=== PATIENT | female | born 1945 | race Caucasian/White ===

== ENCOUNTER → 2017-06-14 | Outpatient (CLI) | payer BC ==
[~2017-06-14] MED LIST: CEFTIN500 MG PO; DUO-KAPS1 CAP; LEVOXYL0.025 MG PO; TUMS500 MG; VITAMIN D1000 IU PO; ZANAFLEX CAPSULE2 MG PO
== END ==
LOC: MC.RAD 11:40
DX: Z12.31 Encounter for screening mammogram for malignant neoplasm of breast (principal); Z80.3 Family history of malignant neoplasm of breast

== ENCOUNTER → 2018-10-05 | Outpatient (CLI) | payer BC, MEDICARE | LOC: MC.RAD 09-11 14:00 | DX: Z12.31 Encounter for screening mammogram for malignant neoplasm of breast (principal) ==

== ENCOUNTER 2023-08-31 14:06 | Outpatient (CLI) | payer MEDICARE, BC ==
[~2023-08-31] VITALS: Ht 162.6 cm; Wt 62.2 kg
[2023-08-31 14:01] VITALS: BP 131/63; PULSE 72; TEMP 98.4
[~2023-08-31 14:06] MED LIST changes: +ASPI325T6 PO; +EUTHYROX75 MCG PO; +MULTI VITAMINS1 TAB PO; +NORCO 325 MG-51 TAB PO; +PAXIL 20MG20 MG PO; +PRAVACHOL 40MG40 MG PO; +SYNTHROID0.075 MG/T PO; -VITAMIN D1000 IU PO; +VITAMIN D31000 IU PO; +ZANAFLEX 4MG TAB4 MG PO
--- NOTE | 2023-08-31 14:18 | NUR ---
PT TOLERATED INJECTIONS WELL AND WAS FREE FROM ACUTE CONCERNS AND COMPLAINTS AT TIME OF DISCHARGE. PT WAS ASSISTED TO MAIN LOBBY VIA WHEELCHAIR AND WAS ACCOMPANIED BY .
[2023-08-31] MEDS ORDERED: Romosozumab-aqqg 210 MG/2.34 ML 2-Syringe KIT SQ ONE (14:30)
== END 2023-08-31 14:19 | disposition home or self-care (01) ==
LOC: EUO 14:06
DX: M81.0 Age-related osteoporosis without current pathological fracture (principal)
CPT/HCPCS: J3111

== ENCOUNTER 2023-09-28 14:06 | Outpatient (RCR) | payer MEDICARE, BC ==
[~2023-09-28] VITALS: Ht 162.6 cm; Wt 63.3 kg
[2023-09-28 14:26] VITALS: BP 131/63; PULSE 68; TEMP 97.2
[2023-09-28] MEDS ORDERED: Romosozumab-aqqg 210 MG/2.34 ML 2-Syringe KIT SQ ONE (14:30)
== END 2023-09-29 | disposition home or self-care (01) ==
LOC: EUO
DX: M81.0 Age-related osteoporosis without current pathological fracture (principal)
CPT/HCPCS: J3111

== ENCOUNTER 2023-10-26 14:10 | Outpatient (CLI) | payer MEDICARE, BC ==
[~2023-10-26] VITALS: Ht 162.6 cm; Wt 63.0 kg
[2023-10-26 14:19] VITALS: BP 139/85; PULSE 70; TEMP 97.5
[2023-10-26] MEDS ORDERED: Romosozumab-aqqg 210 MG/2.34 ML 2-Syringe KIT SQ ONE (14:30)
--- NOTE | 2023-10-26 14:38 | NUR ---
PT TOLERATED INJECTIONS WELL AND VS REMAINED WITHIN NORMAL LIMITS. PT FREE FROM ACUTE CONCERNS AND COMPLAINTS UPON DISCHARGE. PT ASSISTED TO MAIN LOBBY VIA WHEELCHAIR AND WAS ACCOMPANIED BY .
== END 2023-10-26 14:39 | disposition home or self-care (01) ==
LOC: EUO 14:10
DX: M81.0 Age-related osteoporosis without current pathological fracture (principal)
CPT/HCPCS: J3111

== ENCOUNTER 2023-11-23 14:07 | Outpatient (RCR) | payer MEDICARE, BC ==
[~2023-11-23] VITALS: Ht 165.1 cm; Wt 51.0 kg
[2023-11-23] MEDS ORDERED: Romosozumab-aqqg 210 MG/2.34 ML 2-Syringe KIT SQ ONE (14:30)
[2023-11-23 14:47] VITALS: BP 125/70; PULSE 83; TEMP 98
== END 2023-11-23 14:30 ==
LOC: EUO 14:07
DX: M81.0 Age-related osteoporosis without current pathological fracture (principal)
CPT/HCPCS: J3111

== ENCOUNTER 2023-11-29 22:08 | Inpatient (IN) | payer MEDICARE, BC ==
[~2023-11-29] VITALS: Ht 165.1 cm; Wt 59.1 kg
[2023-11-29] MEDS ORDERED: NS 1,000 ML IV ONE (22:30)
[2023-11-29 23:01] LABS: ALBUMIN 2.5 g/dL (3.4-4.8); BILIRUBIN,TOTAL 0.1 mg/dL (0.2-1.2); C-REACTIVE PROTEIN 0.05 mg/dL (0.00-0.50); CALCIUM 8.3 mg/dL (8.4-10.2); CREATININE, serum 0.68 mg/dL (0.57-1.11); MAGNESIUM 1.9 mg/dL (1.6-2.6); TOTAL PROTEIN 4.7 g/dl (6.2-8.1)
[2023-11-29 23:37] LABS: BASO % 0.1 % (0.0-2.0); EOS # 0.1 K/mm3 (0.0-0.7); EOS % 0.6 % (0.0-4.0); GRAN # 11.5 K/mm3 (1.4-6.5); LYMPH # 1.2 K/mm3 (1.2-3.4); LYMPH % 8.8 % (20.0-51.0); MEAN CELL VOLUME 101 fl (80.0-100.0); MEAN CORPUSCULAR HGB CONC 32 g/dl (33.0-37.0); MEAN PLATELET VOLUME 10.8 fl (7.4-10.4); MONO # 1.1 K/mm3 (0.1-0.6); MONO % 7.5 % (1.7-9.3); PLATELET COUNT 221 K/mm3 (130-400); RED BLOOD COUNT 1.44 M/mm3 (4.10-5.30); REDCELL DISTRIBUTION WIDTH-CV 16.1 % (11.5-14.5)
[2023-11-29 23:42] LABS: HEMOGLOBIN 4.7 g/dl (12.5-16.0); MEAN CORPUSCULAR HEMOGLOBIN 33 pg (27-31)
[2023-11-29 23:43] LABS: HEMATOCRIT 14.6 % (37.0-47.0)
[2023-11-30] VITALS (798 sets, daily range): BP systolic 64–121; BP diastolic 33–82; PULSE 88–109; TEMP 98.1–99.6; O2SAT 88–100
[2023-11-30 00:56] LABS: INR 1.3 (0.8-3.0)
[2023-11-30 00:58] LABS: PARTIAL THROMBOPLASTIN TIME 24.9 SECONDS (26.0-37.0)
[2023-11-30 01:29] LABS: RETIC # 0.1 M/mm3 (0.02-0.16); RETIC % 7.2 % (0.5-3.52)
[2023-11-30] MEDS ORDERED: FLOMAX 0.40.4 MG/CAP PO (01:47)
--- NOTE | 2023-11-30 02:32 | NUR ---
RECEIVED REPORT FROM Nayana SPIVEY, ARTURO. WAITING FOR PATIENT TO ARRIVE TO FLOOR FOR ADMIT TO ROOM 327.
--- NOTE | 2023-11-30 03:06 | NUR ---
PATIENT ARRIVED TO ROOM PER E.Natalia CART/TRANSPORTED BY NayanaRNARTURO. PATIENT'S SPOUSE PRESENT, 1ST UNIT PC INFUSING WITH NO PROBLEMS.
--- NOTE | 2023-11-30 03:19 | NUR ---
DR JAIME NOTIFIED OF PATIENT'S ARRIVAL TO ROOM 327, NO NEW ORDERS GIVEN AT THIS TIME. PLAN TO RECHECK CBC 2 HOURS POST 2ND UNIT PACK CELLS PER HOSP. P/P. PATIENT DENIES CHEST PAIN/SOA/CHILLS AT THIS TIME. DENIES ANY RECENT COMPLAINTS OF SKIN PROBLEMS OR URINARY/BOWEL PROBLEMS. PATIENT IS ON ROOM AIR.
[2023-11-30] MEDS ORDERED: Ondansetron 4 MG/2 ML VIAL IV PRN (03:30)
[2023-11-30] MEDS ORDERED: Acetaminophen 500 MG TAB PO PRN (03:30)
[2023-11-30] MEDS ORDERED: tiZANidine 4 MG TAB PO SCH (03:55)
--- NOTE | 2023-11-30 04:47 | NUR ---
2ND UNIT PRBC HUNG PER D.O. SEE VS PER MEDITECH. PATIENT DENIES CHEST PAIN/SOA/CHILLS AT THIS TIME. BLOOD TRANSFUSING AT START OF TRANSFUSION WITH NO OBSERVED PROBLEMS CURRENTLY. PATIENT ATTEMPTING TO VOID PER DANIELA BOLES. AT BEDSIDE.
--- NOTE | 2023-11-30 04:57 | NUR ---
BLOOD TRANSFUSING WITH NO REPORTED C/O OF CHEST PAIN/SOA/CHILLS. INCREASED BLOOD RATE TO 100 PER HOSP P/P. PATIENT DENIES ANY NEEDS OR CONCERNS AT THIS TIME.
--- NOTE | 2023-11-30 05:22 | NUR ---
PATIENT DENIES CHILLS/CHEST PAIN/SOA AT THIS TIME. BLOOD TRANSFUSING WITH NO PROBLEMS, INCREASED RATE TO 110 ML/HR.
--- NOTE | 2023-11-30 06:01 | NUR ---
INFORMED DR JAMIE OF LOW BP, PATIENT HAD TIZANIDINE, PATIENT AWAKES WITH NAME CALLED, THAT PATIENT DENIES CHILLS/CHEST PAIN/SOA WITH BLOOD TRANSFUSING. D.O. GIVEN TO CONTINUE WITH BLOOD, MONITOR PATIENT, CALL IF PATIENT BECOMES CONFUSED/AGITATED TO PROVIDER.
--- NOTE | 2023-11-30 06:04 | NUR ---
TYLENOL GIVEN FOR LOW GRADE TEMP. PATIENT DENIES CHILLS/CHEST PAIN/SOA/BACK PAIN WITH BLOOD TRANSFUSING. BLOOD TRANSFUSING WITH NO PROBLEMS. OBSERVED URINE IN CANISTER OF YELLOW COLOR AND CLEAR IN APPEARANCE. PATIENT STATES THAT SHE NORMALLY TAKES HER THYROID MEDICINE AT AROUND 0800 AT TIME.
[2023-11-30] MEDS ORDERED: NS 1,000 ML IV SCH ×2 (07:15→09:00)
--- NOTE | 2023-11-30 07:26 | NUR ---
SPOKE WITH LEAD PHP DEVELOPER REGARDING RECENT VS, CALL TO ONCALL PROVIDER REGARDING LOW BP, WITH RECOMMENDATIONS TO HAVE REST OF BLOOD UNIT BE GIVEN AT INFUSION RATE OF 200 ML/HR. LEAD PHP DEVELOPER CALLED BACK, INFORMING OF PATIENT TO BE TRANSFERED TO ICU AFTER DAY SHIFT PROVIDER INFORMED OF CHANGE OF VITAL SIGNS. REPORT CALLED TO DONNA SPIVEY, ICU CHARGE WITH BED ASSIGNMENT ICU BED #3 RELAYED TO THIS NURSE. PATIENT TRANSPORT VIA HOSP BED DOWN TO ICU, BED #3 WITH NO FURTHER QUESTIONS FROM RECEIVING ICU NURSES UPON PATIENT ARRIVAL TO UNIT. BLOOD TRANSFUSION ALSO COMPLETED WHEN PATIENT PHYSICALLY BROUGHT TO ICU.
[2023-11-30] MEDS ORDERED: NS 1,000 ML IV ONE (07:45)
[2023-11-30 07:47] LABS: MEAN CORPUSCULAR HGB CONC 33 g/dl (33.0-37.0); MEAN PLATELET VOLUME 10.6 fl (7.4-10.4); PLATELET COUNT 176 K/mm3 (130-400); REDCELL DISTRIBUTION WIDTH-CV 18.2 % (11.5-14.5)
[2023-11-30 07:51] LABS: HEMATOCRIT 21.4 % (37.0-47.0); HEMOGLOBIN 7.1 g/dl (12.5-16.0); MEAN CORPUSCULAR HEMOGLOBIN 31 pg (27-31)
[2023-11-30 07:53] LABS: MEAN CELL VOLUME 93 fl (80.0-100.0)
[2023-11-30 07:54] LABS: CALCIUM 7.6 mg/dL (8.4-10.2); CREATININE, serum 0.63 mg/dL (0.57-1.11)
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
[2023-11-30] MEDS ORDERED: Cyanocobalamin (Vit B-12) 1,000 MCG TAB PO SCH (09:00)
[2023-11-30] MEDS ORDERED: Cholecalciferol (Vit D3) 1000 Units TAB PO SCH (09:00)
[2023-11-30] MEDS ORDERED: PARoxetine HCL 10 MG TABLET PO SCH (09:00)
--- NOTE | 2023-11-30 10:11 | NUR ---
tin worker met with patient and , Francisco J [phone] to discuss discharge planning. Pt lives with her in [place]. She sees Dr. Colon for PCP needs and [facility]. She reports to be independent with ADLs and has a FWW, cane, power chair, and grab bars for DME. reports the home as very accessible as she has MS. informs she attends ST/OT at [facility] and OP PT with [facility]. They would like to continue these services and return home at discharge. Francisco J reports he and their daughter, Melani are DPOA-HC. He thought the hospital had a copy uploaded from their last stay. SW encouraged him to bring another from home, if able. Discharge Plan: home with OP services
[2023-11-30 14:49] LABS: HEMOGLOBIN 6.1 g/dl (12.5-16.0)
[2023-11-30 14:50] LABS: HEMATOCRIT 19.3 % (37.0-47.0)
--- NOTE | 2023-11-30 16:16 | NUR ---
Reached out to Dr. Nicky Colon's office for lab records for baseline of Hemaglobin for Ms. Barron. Baseline is 13.3 Hgh. Redraw of Hgh at 1400, was 6.1, a drop from 7.1, likely from dilution from fluids, however, 1 unit of PRBC was ordered as well as a Q6hr HGH/HCT for the next 24 hours to closely monitor for a drop.
--- NOTE | 2023-11-30 18:27 | NUR ---
Second unit of blood was transfused during shift lab technician on the proof technician helper of November 30, 2023. The second unit was not completed or "ended" in [facility], therefore, I put an approximate time to end second unit so that I was able to start a third unit needed for a 6.1 Hemaglobin. Q6hr blood H and H is ordered for 24 hours.
--- NOTE | 2023-11-30 19:00 | NUR ---
PER REPORT HG DROPPED TODAY. 3RD UNIT OF RBC'S GIVEN. NEED STOOL FOR OCCULT IF SAMPLE CAN BE COLLECTED.
[2023-11-30 19:48] LABS: HEMATOCRIT 22.7 % (37.0-47.0); HEMOGLOBIN 7.6 g/dl (12.5-16.0)
[2023-11-30] MEDS ORDERED: Pravastatin 20 MG TAB PO SCH (21:00)
--- NOTE | 2023-11-30 22:45 | NUR ---
WHILE UP TO BATHROOM PT BECAME WEAK AND UNABLE TO AMBULATE BACK TO THE BATHROOM. PT TRANSFERED TO WHEELCHAIR WITH ASSIST OF 2. PT TRANSFERED FROM WHEELCHAIR TO BED. PT BECAME NAUSEATED. 100 ML REDDISH BROWN EMESIS. SAMPLE SENT TO LAB.
[2023-11-30 23:38] LABS: GASTROCCULT POSITIVE; pH GASTRIC CONTENTS 4
[2023-12-01] VITALS (821 sets, daily range): BP systolic 92–142; BP diastolic 52–92; PULSE 75–126; TEMP 98.1–98.9; O2SAT 85–100
--- NOTE | 2023-12-01 | NUR ---
PROVIDER NOTIFIED EMESIS SENT TO LAB WAS POSITIVE FOR BLOOD. ORDER RECEIVED AND EXECUTED. CONTINUE WITH PLAN OF CARE.
[2023-12-01] MEDS ORDERED: PANTOPRAZOLE IV ONE (00:15)
[2023-12-01] MEDS ORDERED: [UNRECOGNIZED DRUG - OTHER] IV ONE (00:15)
[2023-12-01] MEDS ORDERED: NS IV ONE (00:15)
--- NOTE | 2023-12-01 01:19 | NUR ---
PT LEFT PRICING MANAGER WEAKER THAT RIGHT. THIS IS HER BASELINE. HISTORY OF MS. LLE EDEMA. STABLE ON ROUNDS. NO SIGN OF DISTRESS AT THIS TIME. CONTINUE PLAN OF CARE.
--- NOTE | 2023-12-01 02:17 | NUR ---
PT TACHYCARDIC. CBC AND BMP ORDER.
[2023-12-01 02:50] LABS: BASO % 0.2 % (0.0-2.0); EOS # 0.3 K/mm3 (0.0-0.7); GRAN # 10.6 K/mm3 (1.4-6.5); GRAN % 69.5 % (42.2-75.2); LYMPH # 2.5 K/mm3 (1.2-3.4); LYMPH % 16.5 % (20.0-51.0); MEAN CELL VOLUME 95 fl (80.0-100.0); MEAN CORPUSCULAR HGB CONC 33 g/dl (33.0-37.0); MEAN PLATELET VOLUME 10.6 fl (7.4-10.4); MONO # 1.5 K/mm3 (0.1-0.6); MONO % 9.5 % (1.7-9.3); PLATELET COUNT 142 K/mm3 (130-400); RED BLOOD COUNT 1.91 M/mm3 (4.10-5.30); REDCELL DISTRIBUTION WIDTH-CV 18.3 % (11.5-14.5)
[2023-12-01 02:54] LABS: HEMATOCRIT 18.2 % (37.0-47.0); MEAN CORPUSCULAR HEMOGLOBIN 31 pg (27-31)
[2023-12-01 03:07] LABS: CALCIUM 7.6 mg/dL (8.4-10.2); CREATININE, serum 0.56 mg/dL (0.57-1.11); POTASSIUM 3.6 mEq/L (3.5-4.5)
[2023-12-01 03:27] LABS: ANISOCYTOSIS 2+; BAND 4 % (0-10); LYMPHOCYTE 12 % (20.0-51.0); NEUTROPHILS 83 % (42.0-75.2); PLATELET ESTIMATE NORMAL (NORMAL)
[2023-12-01] MEDS ORDERED: Potassium Chloride 100 ML IV SCH (04:00)
[2023-12-01] MEDS ORDERED: *Potassium Replacement Protocol MC SCH (04:00)
--- NOTE | 2023-12-01 06:21 | NUR ---
PT IS CURRENTLY RECEIVING 4TH UNIT OF PRBC'S SINCE ADMISSION. DISCUSSED WITH PROVIDER AND SERIAL H&H ORDERED, POTASSIUM REPLACEMENT ORDERED. GI CONSULT FOR THIS MORNING. POTASSIUM RATE SLOWED TO 75 ML/HR, PT IS NOT TOLERATING WELL. WARM PACK APPLIED TO AREA. PT IS STABLE. THIS NURSE MADE PT NPO AFTER 0200. STABLE ON ROUNDS. CONTINUE WITH PLAN OF CARE.
--- NOTE | 2023-12-01 07:00 | NUR ---
Report received from PATRIC Hale. Reveiwed overnight events and labs. Hgb is 6.0. Blood currently transfusing. Pt resting in bed with cervical collar in place. Purwick in place. Call light wihtin reach. Will continue with POC.
--- NOTE | 2023-12-01 08:00 | NUR ---
Blood transfuion completed. Pt tolerated well with no reaction. Vital signs re stable. Will continue with POC.
[2023-12-01] MEDS ORDERED: Pantoprazole 40 MG in NS 10 ML IV SCH (09:00)
[2023-12-01 10:08] LABS: HEMATOCRIT 21.8 % (37.0-47.0); HEMOGLOBIN 7.3 g/dl (12.5-16.0)
--- NOTE | 2023-12-01 11:33 | NUR ---
Data: Electric Razor Assembler visit attempted during Electric Razor Assembler rounds. Patient had visitors. Assessment: None. Plan of Care: Chaplains will remain available as needed/requested while Patient is admitted to this hospital.
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
[2023-12-01] MEDS ORDERED: Ondansetron 4 MG/2 ML VIAL IV PRN (13:00)
[2023-12-01] MEDS ORDERED: Lidocaine PF 2% (20 MG/ML) 5 ML VIAL ONE (14:04)
[2023-12-01 16:21] LABS: HEMATOCRIT 20.8 % (37.0-47.0); HEMOGLOBIN 6.9 g/dl (12.5-16.0)
[2023-12-01] MEDS ORDERED: Furosemide 40 MG/4 ML VIAL IV ONE (20:00)
--- NOTE | 2023-12-01 20:35 | NUR ---
PT IS SITTING UP IN BED WATCHING TV WITH HER . SHE IS ORIENTED TO NAME AND LOCATION. SHE HAS BLOOD TRANSFUSING IN A RIGHT UPPER ARM MIDLINE. SHE HAS A PUREWICK WITH ADEQUATE URINE OUTPUT. NO PAIN COMPLAINTS AT THIS TIME. BED ALARM IS ACTIVATED AND CALL LIGHT IN HER LAP.
--- NOTE | 2023-12-01 22:45 | NUR ---
REPORT CALLED TO ANDREA. PT REMAINS ALERT TO SELF AND LOCATION. SHE IS IN NO DISTRESS. PT IS TRANSPORTED WILL ALL OF HER BELONGINGS IN THE BED BY TARYN.
[2023-12-01 23:07] LABS: HEMATOCRIT 25.6 % (37.0-47.0); HEMOGLOBIN 8.6 g/dl (12.5-16.0)
--- NOTE | 2023-12-01 23:16 | NUR ---
PATIENT ARRIVED TO MEDICAL FLOOR AT APPROX 2255. PATIENT IS ALERT, AND ORIENTED TO SELF AND PLACE. ASSESSMENT COMPLETE. DOUBLE LUMEN TO RIGHT UPPER ARM COVERED WITH WOLFGANG BANDAGE. INT TO LEFT HAND AND WRIST. GENERALIZED ECCHYMOSIS TO ABD. LLE IS MORE EDEMATOUS COMPARED TO RLE. PITTING +1 EDEMA NOTED TO LLE. SCDS ON. PATIENT MOVES EXTREMITIES, BUT IS VERY WEAK. PATIENT SAYS SHE WALKS WITH A CANE AT HOME, BUT HAS NOT WALKED THIS HOSPITAL STAY. C COLLAR TO STAY ON CONTINUOUSLY. PERIWIK IN PLACE. FALL PRECAUTIONS IN PLACE. CALL LIGHT WITHIN REACH. PATIENT DENIES NEEDS OR CONCERNS AT THIS TIME.
[2023-12-02] VITALS: BP 132/90; PULSE 101; TEMP 98.1
[2023-12-02 04:00] VITALS: BP 148/71; PULSE 82; TEMP 98.4
--- NOTE | 2023-12-02 07:00 | NUR ---
PATIENT AWAKE AND ALERT, SITTING UP IN BED. PATIENT DENIES ANY NEEDS OR COMPLAINTS AT THIS TIME, FALL PRECAUTINS IN PLACE, C COLLAR IN PLACE.
[2023-12-02 07:39] VITALS: BP 154/79; PULSE 87; TEMP 97.6
[2023-12-02 08:01] LABS: MEAN CELL VOLUME 93 fl (80.0-100.0); MEAN CORPUSCULAR HGB CONC 32 g/dl (33.0-37.0); MEAN PLATELET VOLUME 10.8 fl (7.4-10.4); PLATELET COUNT 143 K/mm3 (130-400); RED BLOOD COUNT 2.81 M/mm3 (4.10-5.30); REDCELL DISTRIBUTION WIDTH-CV 18.6 % (11.5-14.5)
[2023-12-02 08:04] LABS: HEMATOCRIT 26.2 % (37.0-47.0); HEMOGLOBIN 8.5 g/dl (12.5-16.0); MEAN CORPUSCULAR HEMOGLOBIN 30 pg (27-31)
[2023-12-02 08:17] LABS: CREATININE, serum 0.54 mg/dL (0.57-1.11); POTASSIUM 3.4 mEq/L (3.5-4.5)
[2023-12-02 09:29] LABS: ANISOCYTOSIS 2+; BAND 2 % (0-10); EOSINOPHIL 6 % (0-4); LYMPHOCYTE 28 % (20.0-51.0); NEUTROPHILS 62 % (42.0-75.2); PLATELET ESTIMATE NORMAL (NORMAL)
[2023-12-02] MEDS ORDERED: Potassium Bicarbonate/Citrate 20 MEQ Effervescent TAB PO SCH (10:00)
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
--- NOTE | 2023-12-02 12:00 | NUR ---
PATIENT UPDATED THAT PER MD IF SHE IS ABLE TO TOELRATE A NORMAL DIET SHE CAN DISCHARGE HOME TODAY. PATIENT IN AGREEMENT WITH PLAN AND DENEIS ANY CONCERNS AT THIS TIME.
--- NOTE | 2023-12-02 13:33 | NUR ---
MD INFORMED PATIENT TOLERATTED 50% OF LUNCH WITH NO N,V OR PAIN. PER MD PATIENT CAN DISCHARGE HOME
[2023-12-02] MEDS ORDERED: PROTONIX 40MG T40 MG PO (14:16)
[2023-12-02] MEDS ORDERED: CARAFATE 1GM1 G PO (14:17)
--- NOTE | 2023-12-02 14:29 | NUR ---
dr torres updated on patient status. per physician patient needs no follow up at this time.
--- NOTE | 2023-12-02 15:00 | NUR ---
PATIENT GIVEN DISCHARGE INSTRUCITONS AND EDUCATION. PATIENTS IV DISCONTONIED. PATIENTS MIDLINE REMOVED, USING CENTRAL LINE REMOVAL PROTOCOL. GAUZE AND TEGADERM TO MIDLINE REMOVAL SITE. PATIENT LYING FLAT IN BED. PATIENT AWARE FLAT TIME IS DONE AT 1530.
--- NOTE | 2023-12-02 15:38 | NUR ---
PATIENT MIDLINE REMOVAL SITE CDI. PATIENT TAKEN VIA WHEELCHAIR TO PATIENT ENTRANCE WHERE HE PICKED HER UP. BERTIN LEFT IN STABLE CONDITION.
[2023-12-05] VITALS (59 sets, daily range): O2SAT 95–100
== END 2023-12-02 15:37 | disposition home or self-care (01) | DRG 378 ==
LOC: COL.ER 22:08 → SURG 11-30 02:35 → MEDICAL 11-30 02:35 → ICU 11-30 02:35 → MEDICAL 12-01 22:55
PROVIDERS: Emergency Medicine; Hospitalist; Internal Medicine; Internal Medicine Gastroenterology; Internal Medicine Sleep Medicine; Nurse Practitioner Family; ADMIT Internal Medicine
PROC: 30233N1 Transfusion of Nonautologous Red Blood Cells into Peripheral Vein, Percutaneous Approach (ICD-10-PCS; 2023-11-30)
PROC: 0W3P8ZZ Control Bleeding in Gastrointestinal Tract, Via Natural or Artificial Opening Endoscopic (ICD-10-PCS; 2023-12-01)
PROC: 0DB68ZX Excision of Stomach, Via Natural or Artificial Opening Endoscopic, Diagnostic (ICD-10-PCS; principal; 2023-12-01 14:00)
DX: K26.4 Chronic or unspecified duodenal ulcer with hemorrhage (principal); D62 Acute posthemorrhagic anemia; K29.31 Chronic superficial gastritis with bleeding; G35 Multiple sclerosis; E53.8 Deficiency of other specified B group vitamins; M62.838 Other muscle spasm; I95.2 Hypotension due to drugs; T42.8X5A Adverse effect of antiparkinsonism drugs and other central muscle-tone depressants, initial encounter; K29.61 Other gastritis with bleeding; K29.81 Duodenitis with bleeding; E78.5 Hyperlipidemia, unspecified; E03.9 Hypothyroidism, unspecified; Z88.3 Allergy status to other anti-infective agents; Z79.890 Hormone replacement therapy; Z79.899 Other long term (current) drug therapy; Z23 Encounter for immunization
CPT/HCPCS: C1751; C1892; C9113; J2704; J3420; J3480; J7030; J7060; P9016

== ENCOUNTER 2023-12-05 02:12 | Inpatient (IN) | payer MEDICARE, BC ==
[~2023-12-05] VITALS: Ht 165.1 cm; Wt 65.1 kg
[2023-12-05] VITALS (944 sets, daily range): BP systolic 92–126; BP diastolic 51–82; PULSE 81–115; TEMP 97.8–99.2; O2SAT 81–100
[~2023-12-05 02:12] MED LIST changes: +CARAFATE 1GM1 G PO; +FLOMAX 0.40.4 MG/CAP PO; +PROTONIX 40MG T40 MG PO
[2023-12-05] MEDS ORDERED: NS 500 ML IV ONE (02:45)
[2023-12-05 02:53] LABS: COLLECTION METHOD CLEAN CATCH
[2023-12-05 02:54] LABS: BASO % 0.3 % (0.0-2.0); EOS # 0.3 K/mm3 (0.0-0.7); EOS % 4.2 % (0.0-4.0); GRAN # 5.1 K/mm3 (1.4-6.5); LYMPH # 1.5 K/mm3 (1.2-3.4); LYMPH % 19.4 % (20.0-51.0); MEAN CORPUSCULAR HGB CONC 30 g/dl (33.0-37.0); MEAN PLATELET VOLUME 10.8 fl (7.4-10.4); MONO # 0.6 K/mm3 (0.1-0.6); MONO % 7.3 % (1.7-9.3); PLATELET COUNT 195 K/mm3 (130-400); RED BLOOD COUNT 1.84 M/mm3 (4.10-5.30); REDCELL DISTRIBUTION WIDTH-CV 22.3 % (11.5-14.5)
[2023-12-05 02:55] LABS: HEMATOCRIT 19.1 % (37.0-47.0); HEMOGLOBIN 5.7 g/dl (12.5-16.0); MEAN CELL VOLUME 104 fl (80.0-100.0); MEAN CORPUSCULAR HEMOGLOBIN 31 pg (27-31)
[2023-12-05 02:57] LABS: URINE APPEARANCE CLEAR (CLEAR/HAZY); URINE BLOOD NEGATIVE (NEGATIVE); URINE COLOR YELLOW (YELLOW); URINE GLUCOSE NEGATIVE (NEGATIVE); URINE KETONE 1+ (NEGATIVE); URINE NITRATE NEGATIVE (NEGATIVE); URINE PROTEIN(semi-quant) NEGATIVE (NEGATIVE)
[2023-12-05 03:08] LABS: ALBUMIN 2.2 g/dL (3.4-4.8); ALKALINE PHOSPHATASE 80 U/L (40-150); ANION GAP 7 mmol/L (7-16); AST,SGOT 12 U/L (5-34); BILIRUBIN,TOTAL 0.2 mg/dL (0.2-1.2); BLOOD UREA NITROGEN 16 mg/dL (10-20); C-REACTIVE PROTEIN 0.05 mg/dL (0.00-0.50); CALCIUM 9.2 mg/dL (8.4-10.2); CHLORIDE 109 mEq/L (98-107); CREATININE, serum 0.66 mg/dL (0.57-1.11); GLUCOSE 125 mg/dL (70-99); MAGNESIUM 1.9 mg/dL (1.6-2.6); POTASSIUM 3.5 mEq/L (3.5-4.5); SODIUM 142 mEq/L (136-145); TOTAL PROTEIN 4.2 g/dl (6.2-8.1)
[2023-12-05 03:11] LABS: ALANINE AMINOTRANSFERASE < 6 U/L (0-55)
[2023-12-05] MEDS ORDERED: NS 1,000 ML IV SCH (03:30)
[2023-12-05] MEDS ORDERED: *Potassium Replacement Protocol MC SCH (04:15)
[2023-12-05] MEDS ORDERED: Potassium Chloride 100 ML IV SCH (04:15)
--- NOTE | 2023-12-05 07:16 | NUR ---
RECIEVED REPORT FROM PHUC RN IN ED. PATIENT ARRIVED TO UNIT AROUND 0515. ALL BELONGINGS WITH PATIENT AT TIME OF TRANSFER. NO FAMILY AT BEDSIDE.
[2023-12-05] MEDS ORDERED: Sucralfate 1 G TAB PO SCH (07:30)
[2023-12-05] MEDS ORDERED: PARoxetine HCL 10 MG TABLET PO SCH (09:00)
[2023-12-05] MEDS ORDERED: Pantoprazole 40 MG in NS 10 ML IV SCH (09:00)
[2023-12-05] MEDS ORDERED: Cholecalciferol (Vit D3) 1000 Units TAB PO SCH (09:00)
--- NOTE | 2023-12-05 09:33 | NUR ---
HEAD TO TOE ASSESSMENT COMPLETED. PATIENT IS ALERT AND SEMI ORIENTED. PATIENT HAS MILD CONFUSION AND ASKS THE SAME QUESTION MULTIPLE TIMES. PUPILS EQUAL AND REACTIVE. LUNG SOUNDS CLEAR BILATERALLY. BOWEL SOUNDS ACTIVE X4. PATIENT UTILIZING PUREWICK. PULSES PRESENT BILATERALLY IN UPPER AND LOWER EXTREMITIES. PATIENT HAS NO COMPLAINTS OF PAIN THIS MORNING. MEDICATIONS ADMINISTERED PER EMAR. BED IN A LOW POSITION, ALARM ON. CALL LIGHT WITHIN REACH.
--- NOTE | 2023-12-05 10:32 | NUR ---
grease worker met with patient and , Francisco J [phone] to discuss discharge planning. She reports to live with her in [place]. She sees Dr. Nicky Colon for PCP and [facility]. reports pt needs assistance with ADLS and uses a cane, FWW, and power chair for DME. Pt reports her and daughter, Melani are DPOA-HC and they brought this in last time. Not uploaded on chart yet. reports they are established with OP [facility] and therapy at [facility]. They would like to continue these services. PT/OT Pending Discharge Plan: tbd, home with OP services
[2023-12-05] MEDS ORDERED: Ondansetron 4 MG/2 ML VIAL IV PRN ×2 (10:45→19:00)
[2023-12-05 15:42] LABS: BASO % 0.2 % (0.0-2.0); EOS # 0.1 K/mm3 (0.0-0.7); EOS % 0.6 % (0.0-4.0); GRAN # 8.6 K/mm3 (1.4-6.5); LYMPH # 1.3 K/mm3 (1.2-3.4); LYMPH % 12.4 % (20.0-51.0); MEAN CORPUSCULAR HGB CONC 32 g/dl (33.0-37.0); MEAN PLATELET VOLUME 10.8 fl (7.4-10.4); MONO # 0.7 K/mm3 (0.1-0.6); MONO % 6.5 % (1.7-9.3); PLATELET COUNT 157 K/mm3 (130-400); RED BLOOD COUNT 2.08 M/mm3 (4.10-5.30); REDCELL DISTRIBUTION WIDTH-CV 20.5 % (11.5-14.5)
[2023-12-05 15:44] LABS: HEMATOCRIT 19.5 % (37.0-47.0); HEMOGLOBIN 6.2 g/dl (12.5-16.0); MEAN CORPUSCULAR HEMOGLOBIN 30 pg (27-31)
[2023-12-05 15:45] LABS: MEAN CELL VOLUME 94 fl (80.0-100.0)
--- NOTE | 2023-12-05 18:12 | NUR ---
PATIENT RESTING COMFORTABLY IN BED AT THIS TIME. PATIENT UP TO BEDSIDE COMMODE ONCE TODAY - LARGE BLACK/BLOODY INCONTINENT BM. EXPLAINED CONCERNS THAT HE DOESN'T FEEL LIKE STAFF IS DOING ANYTHING FOR PATIENT'S BLEEDING. DR. COVARRUBIAS NOTIFIED AND DISCUSSED FURTHER WITH PATIENT'S . PATIENT HAS BEEN ABLE TO TOLERATE CLEAR LIQUIDS THROUGHOUT THE DAY AND HAS NO PROBLEM TAKING MEDICATIONS. ALL MEDICATIONS ADMINISTERED PER EMAR. PATIENT CURRENTLY RECEIVING THIRD UNIT OF PRBC. TOLERATING WELL. VSS AT THIS TIME.
--- NOTE | 2023-12-05 19:45 | NUR ---
Received report from PATRIC Christina. Pt's vitals are stable at this time and pt does not look in distress at this time. Pt has NS and PRBC running at this time in different IV lines. Pt has a purewick in place at this time. Will continue with pt care.
[2023-12-05] MEDS ORDERED: Pravastatin 20 MG TAB PO SCH (21:00)
[2023-12-05 22:07] LABS: HEMOGLOBIN 7.1 g/dl (12.5-16.0)
[2023-12-06] VITALS (1305 sets, daily range): BP systolic 93–119; BP diastolic 47–95; PULSE 80–112; TEMP 98.8–99.2; O2SAT 73–100
[2023-12-06 02:34] LABS: BASO % 0.2 % (0.0-2.0); EOS # 0.3 K/mm3 (0.0-0.7); EOS % 2.9 % (0.0-4.0); GRAN # 7.1 K/mm3 (1.4-6.5); LYMPH # 1.8 K/mm3 (1.2-3.4); LYMPH % 17.8 % (20.0-51.0); MEAN CELL VOLUME 90 fl (80.0-100.0); MEAN CORPUSCULAR HGB CONC 33 g/dl (33.0-37.0); MEAN PLATELET VOLUME 10.6 fl (7.4-10.4); MONO # 0.8 K/mm3 (0.1-0.6); MONO % 7.9 % (1.7-9.3); PLATELET COUNT 153 K/mm3 (130-400); RED BLOOD COUNT 1.92 M/mm3 (4.10-5.30); REDCELL DISTRIBUTION WIDTH-CV 21.6 % (11.5-14.5)
[2023-12-06 02:37] LABS: HEMOGLOBIN 5.6 g/dl (12.5-16.0); MEAN CORPUSCULAR HEMOGLOBIN 29 pg (27-31)
[2023-12-06 02:38] LABS: HEMATOCRIT 17.2 % (37.0-47.0)
[2023-12-06 03:03] LABS: CALCIUM 7.6 mg/dL (8.4-10.2); CREATININE, serum 0.58 mg/dL (0.57-1.11); MAGNESIUM 1.5 mg/dL (1.6-2.6); POTASSIUM 3.5 mEq/L (3.5-4.5)
[2023-12-06] MEDS ORDERED: Potassium Chloride 100 ML IV SCH (03:45)
--- NOTE | 2023-12-06 06:20 | NUR ---
Pt had an uneventful night. Pt's vitals were stable throughout the night. Pt was oriented to self and confused throughout the night and kept pulling the purewick out and had some incont episodes, bed change was done and pt wiped down. Pt has IVF, potassium, and PRBC running at this time. Pt currently resting in bed with call light within reach and bed alarms on. Will give report to day shift nurse.
--- NOTE | 2023-12-06 07:25 | NUR ---
RECEIVED REPORT FROM NIGHTSHIFT RNJANINE. PATIENT RESTING IN BED WITH EYES CLOSED. BED IN A LOW POSITION, ALARM ON. CALL LIGHT WITHIN REACH.
--- NOTE | 2023-12-06 08:34 | NUR ---
HEAD TO TOE ASSESSMENT COMPLETED. AT BEDSIDE. PATIENT IS CONFUSED THIS MORNING AND CONVERSATION DOESN'T MAKE SENSE. PATIENT ABLE TO FOLLOW VERBAL COMMANDS. PATIENT DROWSY BUT ARROUSES TO VERBAL STIMULI. PATIENT HAS BLOOD INFUSING AT THIS TIME. PUPILS EQUAL AND REACTIVE. C-COLLAR IN PLACE FOR PREVIOUS C-SPINE FX. PATIENT HAS NO COMPLAINTS OF PAIN AT THIS TIME. HEART SOUNDS REGULAR WITH S1 AND S2 NOTED. LUNG SOUNDS CLEAR BILATERALLY. BOWEL SOUNDS ACTIVE X4. PATIENT UTILIZING PUREWICK TO VOID, OTHERWISE INCONTINENT. PULSES PRESENT AND EQUAL BILATERALLY IN UPPER AND LOWER EXTREMITIES. PATIENT HAS +1 EDEMA NOTED TO LEFT LOWER LEG/FOOT AREA. NO SKIN ISSUES NOTED AT THIS TIME. BED IN LOW POSITION, ALARM ON. CALL LIGHT WITHIN REACH.
[2023-12-06] MEDS ORDERED: Iohexol 300 - 100 ML VIAL IV ONE (10:22)
[2023-12-06] MEDS ORDERED: NS 100 ML IV SCH (10:29)
[2023-12-06 11:16] LABS: HEMATOCRIT 22.2 % (37.0-47.0); HEMOGLOBIN 7.4 g/dl (12.5-16.0)
[2023-12-06] MEDS ORDERED: Magnesium Sulfate 4 GM/50 ML IV SOLN IV ONE (11:30)
[2023-12-06] MEDS ORDERED: Lidocaine PF 2% (20 MG/ML) 5 ML VIAL ONE (12:37)
--- NOTE | 2023-12-06 13:45 | NUR ---
PATIENT NPO FOR ENDOSCOPY SINCE MIDNIGHT. PO MEDICATIONS HELD. DR. RAZO IN ROOM AROUND 10 TO DISCUSS SCOPE WITH PATIENT AND . QUESTIONS ANSWERED. CONSENT SIGNED BY /DPOA. PATIENT TRANSFERRED ONTO ENDO BED AND OFF UNIT AT 1210 ACCOMPANIED BY ENDO STAFF. PATIENT RETURNED TO UNIT ACCOMPANIED BY KATRIN ENDO STAFF AT 1335. PATIENT TRANSFERRED INTO ICU BED AND REPOSITIONED FOR COMFORT. BED IN A LOW POSITION. CALL LIGHT MARIKA HENRIQUEZ.
--- NOTE | 2023-12-06 14:35 | NUR ---
sound installation worker notes patient cannot see PT/OT due to low Hgb. She will be monitored for continued bleeding to assess for transfer to another facility, or if she can stabilize. Discharge Plan: [facility], has OP services
[2023-12-06 15:49] LABS: HEMATOCRIT 24.5 % (37.0-47.0)
--- NOTE | 2023-12-06 18:33 | NUR ---
PATIENT HAD UNEVENTFUL AFTERNOON AFTER RETURNING FROM ENDOSCOPY. PATIENT RESTED IN BED WITH EYES CLOSED MAJOROITY OF THE AFTERNOON. DENIES PAIN OR OTHER DISCOMFORT. PUREWICK IN PLACE SUCTIONING CLEAR, YELLOW URINE. PATIENT INDEPENDENT WITH REPOSITIONING. MEDICATIONS ADMINISTERED PER EMAR. HAS REMAINED AT BEDSIDE FOR MAJORITY OF THIS SHIFT. BED IN A LOW POSITION, ALARM ON. CALL LIGHT WITHIN REACH.
--- NOTE | 2023-12-06 19:45 | NUR ---
Received report from PATRIC Christina. Pt alert and sitting up in bed with at bedside. Call light is within reach. Pt has IVF running at this time through a left upper arm PICC. Checking hgb q8hrs. Pt has a purewick in place. Vitals are stable at this time. Will continue with pt care.
[2023-12-07] VITALS (250 sets, daily range): BP systolic 94–107; BP diastolic 52–56; PULSE 78–86; TEMP 98.5–98.8; O2SAT 70–100
[2023-12-07 01:01] LABS: HEMATOCRIT 21.7 % (37.0-47.0); HEMOGLOBIN 7.4 g/dl (12.5-16.0)
[2023-12-07 05:24] LABS: BASO % 0.2 % (0.0-2.0); EOS # 0.4 K/mm3 (0.0-0.7); EOS % 3.6 % (0.0-4.0); GRAN # 7.2 K/mm3 (1.4-6.5); GRAN % 75.3 % (42.2-75.2); LYMPH # 1.2 K/mm3 (1.2-3.4); LYMPH % 12.9 % (20.0-51.0); MEAN CELL VOLUME 90 fl (80.0-100.0); MEAN CORPUSCULAR HGB CONC 33 g/dl (33.0-37.0); MEAN PLATELET VOLUME 10.7 fl (7.4-10.4); MONO # 0.7 K/mm3 (0.1-0.6); PLATELET COUNT 162 K/mm3 (130-400); RED BLOOD COUNT 2.38 M/mm3 (4.10-5.30); REDCELL DISTRIBUTION WIDTH-CV 19.4 % (11.5-14.5)
[2023-12-07 05:26] LABS: HEMATOCRIT 21.3 % (37.0-47.0); HEMOGLOBIN 7.1 g/dl (12.5-16.0); MEAN CORPUSCULAR HEMOGLOBIN 30 pg (27-31)
[2023-12-07 05:33] LABS: CALCIUM 7.1 mg/dL (8.4-10.2); CREATININE, serum 0.5 mg/dL (0.57-1.11); POTASSIUM 3.4 mEq/L (3.5-4.5)
[2023-12-07] MEDS ORDERED: Potassium Chloride 100 ML IV SCH (06:15)
--- NOTE | 2023-12-07 06:37 | NUR ---
Pt had an uneventful night. Pt is resting in bed with call light within reach and bed alarms on. Pt's vitals have been stable throughout the night. Pt is on IVF. Checking hgb q8hrs, at AM labs Hgb at 7.1, hospitalist notified and going to give 1 unit of PRBC.
--- NOTE | 2023-12-07 07:58 | NUR ---
Initial visit (this stay); Patient thanked Gis Coordinator for continuing to look in on her while she is here and is always receptive to Gis Coordinator for keeping her in her prayers.
[2023-12-07 11:57] LABS: HEMATOCRIT 22.5 % (37.0-47.0); HEMOGLOBIN 7.3 g/dl (12.5-16.0)
== END 2023-12-07 17:05 | disposition home or self-care (01) | DRG 377 ==
LOC: COL.ER 02:12 → ICU 04:21
PROVIDERS: Emergency Medicine; Hospitalist; Internal Medicine Gastroenterology; ADMIT Internal Medicine
PROC: 30233N1 Transfusion of Nonautologous Red Blood Cells into Peripheral Vein, Percutaneous Approach (ICD-10-PCS; 2023-12-05)
PROC: 0DJD8ZZ Inspection of Lower Intestinal Tract, Via Natural or Artificial Opening Endoscopic (ICD-10-PCS; 2023-12-06)
PROC: 02HV33Z Insertion of Infusion Device into Superior Vena Cava, Percutaneous Approach (ICD-10-PCS; 2023-12-06)
PROC: XW0G886 Introduction of Mineral-based Topical Hemostatic Agent into Upper GI, Via Natural or Artificial Opening Endoscopic, New Technology Group 6 (ICD-10-PCS; principal; 2023-12-06 11:30)
PROC: 0W3P8ZZ Control Bleeding in Gastrointestinal Tract, Via Natural or Artificial Opening Endoscopic (ICD-10-PCS; 2023-12-06 11:30)
DX: K26.4 Chronic or unspecified duodenal ulcer with hemorrhage (principal); R57.8 Other shock; D62 Acute posthemorrhagic anemia; R65.10 Systemic inflammatory response syndrome (SIRS) of non-infectious origin without acute organ dysfunction; K29.71 Gastritis, unspecified, with bleeding; I95.9 Hypotension, unspecified; G35 Multiple sclerosis; E03.9 Hypothyroidism, unspecified; D51.9 Vitamin B12 deficiency anemia, unspecified; E87.6 Hypokalemia; F41.9 Anxiety disorder, unspecified; E78.5 Hyperlipidemia, unspecified; Z79.02 Long term (current) use of antithrombotics/antiplatelets; Z79.890 Hormone replacement therapy; Z88.8 Allergy status to other drugs, medicaments and biological substances
CPT/HCPCS: C1052; C1751; C1892; C9113; J2405; J2704; J3475; J3480; J7030; J7040; P9016; Q9967

== ENCOUNTER → 2024-04-19 | Outpatient (CLI) | payer MEDICARE, BC | LOC: MC.RAD 09:39 | DX: Z12.31 Encounter for screening mammogram for malignant neoplasm of breast (principal) ==

== ENCOUNTER 2024-04-26 11:08 | Outpatient (CLI) | payer MEDICARE, BC ==
[~2024-04-26] VITALS: Ht 165.1 cm; Wt 58.4 kg
[2024-04-26] MEDS ORDERED: Romosozumab-aqqg 210 MG/2.34 ML 2-Syringe KIT SQ ONE (11:30)
[2024-04-26 11:50] VITALS: BP 98/63; PULSE 66; TEMP 98.6
== END 2024-04-26 12:43 ==
LOC: EUO 11:08
DX: M81.0 Age-related osteoporosis without current pathological fracture (principal)
CPT/HCPCS: J3111